=== PATIENT | female | born 1965 | race Caucasian/White ===

== ENCOUNTER 2023-01-28 06:01 | Inpatient (IN) ==
--- NOTE | 2023-01-03 16:32 | PAT Medication Instructions ---
Medication Instructions Date of Service January 03, 2023 Home Medications fexofenadine 180 mg tablet 180 mg PO QPM fluticasone propionate 50 mcg/actuation nasal spray,suspension 1 spray intranasal QAM galcanezumab-gnlm 120 mg/mL subcutaneous pen injector (Emgality Pen) 120 mg subcut Q30D ibuprofen 800 mg tablet 800 mg PO Q8H PRN omeprazole 20 mg capsule,delayed release 20 mg PO QPM potassium chloride 20 mEq tablet,extended release(part/cryst) 40 meq PO BID prednisone 5 mg tablet 7.5 mg PO UD PRN sulfasalazine 500 mg tablet 1 g PO BID PRN topiramate 100 mg tablet 200 mg PO HS triamterene 75 mg-hydrochlorothiazide 50 mg tablet 0.5 tab PO QAM ubrogepant 100 mg tablet (Ubrelvy) 100 mg PO UD PRN Check if prescriber has tabby-operative recommendations topiramate 100 mg tablet 200 mg PO HS Continue as directed prednisone 5 mg tablet 7.5 mg PO UD PRN(if needed) ubrogepant 100 mg tablet (Ubrelvy) 100 mg PO UD PRN(if needed) galcanezumab-gnlm 120 mg/mL subcutaneous pen injector (Emgality Pen) 120 mg subcut Q30D ASK your surgeon for instructions ibuprofen 800 mg tablet 800 mg PO Q8H PRN ASK your prescriber and surgeon sulfasalazine 500 mg tablet 1 g PO BID PRN DO NOT take the morning of surgery potassium chloride 20 mEq tablet,extended release(part/cryst) 40 meq PO BID triamterene 75 mg-hydrochlorothiazide 50 mg tablet 0.5 tab PO QAM Take morning of surgery With a small sip of water, OTHERWISE NOTHING TO EAT OR DRINK AFTER MIDNIGHT: fluticasone propionate 50 mcg/actuation nasal spray,suspension 1 spray intranasal QAM Take evening before surgery fexofenadine 180 mg tablet 180 mg PO QPM omeprazole 20 mg capsule,delayed release 20 mg PO QPM potassium chloride 20 mEq tablet,extended release(part/cryst) 40 meq PO BID Other Notes If you have any questions please call us at [phone] or [phone] or [phone] or [phone]
--- NOTE | 2023-01-04 10:33 | PAT Medication Instructions ---
Medication Instructions Date of Service January 04, 2023 Home Medications fexofenadine 180 mg tablet 180 mg PO QPM fluticasone propionate 50 mcg/actuation nasal spray,suspension 1 spray intranasal QAM galcanezumab-gnlm 120 mg/mL subcutaneous pen injector (Emgality Pen) 120 mg subcut Q30D ibuprofen 800 mg tablet 800 mg PO Q8H PRN Pain omeprazole 20 mg capsule,delayed release 20 mg PO QPM potassium chloride 20 mEq tablet,extended release(part/cryst) 40 meq PO BID prednisone 5 mg tablet 7.5 mg PO UD PRN Pain sulfasalazine 500 mg tablet 1 g PO BID PRN Pain topiramate 100 mg tablet 200 mg PO HS triamterene 75 mg-hydrochlorothiazide 50 mg tablet 0.5 tab PO QAM ubrogepant 100 mg tablet (Ubrelvy) 100 mg PO UD PRN MIGRAINES Take morning of surgery With a small sip of water, OTHERWISE NOTHING TO EAT OR DRINK AFTER MIDNIGHT: Insulin Dependent Diabetic Patients * Test your blood sugar the morning of surgery * If Blood Sugar is GREATER THAN 150, take HALF of your regular dose of: * If Blood Sugar is LESS THAN 150, DO NOT TAKE ANY: Other Notes If you have any questions please call us at [phone] or [phone] or [phone] or [phone]
--- NOTE | 2023-01-12 12:11 | Anesthesiology Consultation ---
Date of Service January 12, 2023 Assessment & Plan (1) Encounter for pre-operative examination: Chart Review Chart Review: Acceptable Risk for Surgery (pending PCP clearance and response re: CXR ) and Patient seen in Pre Admission Testing - Awaiting PCP clearance 01/25/23 (please sent optimization note re:CXR and preop testing to PCP) (Dr. Mackey) Per PAT appt on 01/12/23, patient denies any recent travel or large group acti vities. Pt is vaccinated for Covid. Will leave to surgeon's discretion if preop Covid testing needed. Educated on importance of using Covid precautions one week prior to surgery Teaching & Discussion Pre-Anesthesia Teaching/Discussion Notes: Instructed NPO after midnight before surgery,except medications with 15 cc of water. Medication instructions provided according to the [facility] guidelines. History Surgery Operation Date: 01/28/23 07:45 Proposed Procedures p L3-L4 Revision Decompression, L4-L5 Decompression, L3-L5 Fusion, Spinal Cord Monitoring - Addison Croft, Height/Weight Height: 5 ft 1.5 in Weight: 74.8 kg Allergies Allergy/AdvReac Type Severity Reaction Status Date / Time oxycodone [From OxyContin] AdvReac Vomiting Verified 01/03/23 09:12 Medications Home Medications Medication Instructions Recorded Confirmed Last Taken fexofenadine 180 mg tablet 180 mg PO QPM 01/03/23 01/03/23 Unknown fluticasone propionate 50 1 spray intranasal QAM 01/03/23 01/03/23 Unknown mcg/actuation nasal spray,suspension galcanezumab-gnlm 120 mg/mL 120 mg subcut Q30D 01/03/23 01/03/23 Unknown subcutaneous pen injector (Emgality Pen) ibuprofen 800 mg tablet 800 mg PO Q8H PRN Pain 01/03/23 01/03/23 Unknown omeprazole 20 mg capsule,delayed 20 mg PO QPM 01/03/23 01/03/23 Unknown release potassium chloride 20 mEq 40 meq PO BID 01/03/23 01/03/23 Unknown tablet,extended release(part/cryst) prednisone 5 mg tablet 7.5 mg PO UD PRN Pain 01/03/23 01/03/23 Unknown sulfasalazine 500 mg tablet 1 g PO BID PRN Pain 01/03/23 01/03/23 Unknown topiramate 100 mg tablet 200 mg PO HS 01/03/23 01/03/23 Unknown triamterene 75 0.5 tab PO QAM 01/03/23 01/03/23 Unknown mg-hydrochlorothiazide 50 mg tablet ubrogepant 100 mg tablet (Ubrelvy) 100 mg PO UD PRN MIGRAINES 01/03/23 01/03/23 Unknown Past Medical History Medical History Arthritis GERD (gastroesophageal reflux disease) Well controlled and stable Hx of migraines Hx of seasonal allergies Hypertension Exercise / Class Metabolic Activity II 4-5 Yardwork/Stairs/Walk up hill (one flight of stairs- no chest pain or SOB ) Past Surgical History Surgical History History of endometrial ablation 2004 History of esophagogastroduodenoscopy (EGD) History of lumbar surgery Hx of section X1 1995 Hx of colonoscopy Past Anesthesia History No Hx of Anesthesia Complications and No Family Hx of Anesthesia Complications History of PONV No Hx of PONV (N/V with oxycodone ) and Hx of Motion Sickness (mild) Social History Smoking Status: Never smoker Do You Dip or Chew Tobacco: No Hx Alcohol Use: Yes alcohol intake frequency: holidays/special occasions only Hx Substance Use: No substance use type: does not use Review of Systems - Hx of snoring- did have at home sleep test- no LISS Patient denies chest pain, shortness of breath, dyspnea on exertion, cough, wheezing, palpitations. No hx of seizures, stroke, CO. No hx of blood clots or blood transfusions Physical Exam Vital Signs VITALS BP 101/70 (baseline low normal BP per patient- denies dizziness/syncope) P 76 TEMP 98.2 SP02 97% RESP 16 Constitutional no acute distress ENMT Mouth: no TMJ clicking Thyromental Distance: < 3.5 Finger Breadths (3.0) Mallampati Class: III Wears night guards due grinding teeth Neck + limited neck extension (minimal) Respiratory normal respiratory effort; no respiratory distress Auscultation: lungs clear to auscultation bilaterally; no wheezes Cardiovascular Rate/Rhythm: regular rate and regular rhythm Heart Sounds: no murmur Vessels: no carotid bruit Musculoskeletal Spine: no pain with cervical ROM Extremities: extremities normal to inspection Psychiatric Orientation: alert Lab Results Anesthesia Preop Results Results Anesthesia Widget: WBC 4.24 K/ul (4.8-10.8) L 01/12/23 Hgb 15.3 g/dl (12.0-16.0) 01/12/23 Hct 42.9 % (37.0-47.0) 01/12/23 Plt 232 K/uL (130-400) 01/12/23 Na 136 mmol/L (136-145) 01/12/23 K 4.2 mmol/L (3.5-5.1) 01/12/23 Cl 102 mmol/L (98-107) 01/12/23 CO2 27 mmol/L (21-32) 01/12/23 BUN 14 mg/dl (6-23) 01/12/23 Creat 0.81 mg/dl (0.6-1.2) 01/12/23 Glucose Level 84 mg/dl (70-99(Fasting)) 01/12/23 PT 10.9 Seconds (9.0-12.0) 01/12/23 PTT 29.0 Seconds (21.0-31.0) 01/12/23 INR 1.0 (0.9-1.1) 01/12/23 Urine Color Yellow 01/12/23 Urine Appearance Clear (Clear) 01/12/23 Urine pH 8.0 (4.5-7.5) H 01/12/23 Urine Specific [place] 1.010 (1.000-1.030) 01/12/23 Urine Protein Negative (Negative) 01/12/23 Urine Glucose (UA) Negative (Negative) 01/12/23 Urine Ketones Negative (Negative) 01/12/23 Urine Blood Negative (Negative) 01/12/23 Urine Nitrite Negative (Negative) 01/12/23 Urine Bilirubin Negative (Negative) 01/12/23 Urine Urobilinogen Negative (Negative) 01/12/23 Urine Leukocyte Esterase 1+ (Negative) H 01/12/23 Urine WBC (Auto) 1-5 /hpf (0-5) 01/12/23 Urine RBC (Auto) 0-4 /hpf (0-4) 01/12/23 Urine Hyaline Casts (Auto) 0 /lpf (0-5) 01/12/23 Urine Epithelial Cells (Auto) >30 /lpf (0-5) H 01/12/23 Urine Bacteria (Auto) Negative (Negative) 01/12/23 Blood Type A Positive 01/12/23 Antibody Screen NEGATIVE 01/12/23 Testing Electrocardiogram Date: 01/12/23 Findings: + NSR @ (70bpm ) Normal EKG per cardio Chest X-Ray Date: 01/14/23 FINDINGS: Lung volumes are normal. Note is made of a 2.1 cm density along the left heart border. There is a possible corresponding 3.9 cm density on lateral projection. These findings may be artifactual. There is no pneumothorax or pleural effusion. Cardiac size is normal. Mediastinal contours are normal. There is no evidence for pulmonary edema. IMPRESSION: 1. Possible left lower lobe opacity. This is likely artifactual or atelectatic. However, a nonemergent chest CT is recommended to exclude a pulmonary nodule. 2. No acute cardiopulmonary findings. COVID-19 Risk Screen Screening Information COVID-19 Screen Date: 01/12/23 Exposure 21 Days Family/Household +COVID Last 21 Days: No Exposure 10 Days Any COVID Exposure Last 10 Days: No Symptoms Last 10 Days Experienced COVID Sx Last 10 Days: No + COVID 0-90 Days COVID + in Last 0-90 Days: No Risk Plan COVID Risk Plan: No Risk Identified Patient Education COVID Preop Screening Education Complete: Yes
[~2023-01-28 06:01] MED LIST: ACETAMINOPHEN 500 MG TAB PO SCH; CeleBREX 200 MG CAP PO SCH; GABAPENTIN 600 MG DOSE PO SCH; LR 15ML/HR IV SCH; ceFAZolin 2000MG 2,000 MG/15 ML SYR IV SCH
[2023-01-28] MEDS ORDERED: ceFAZolin 330 MG/ML 1 GM VIAL ONE (07:00)
[2023-01-28] MEDS ORDERED: BUPIVACAINE/EPINEPHRINE 0.25% 1:200,000 30 ML VIAL ONE (07:00)
[2023-01-28] MEDS ORDERED: ATROPINE SULFATE 0.1 MG/ML 10ML SYR IV PRN (07:08)
[2023-01-28] MEDS ORDERED: HYDROmorphone INJ 2 MG/ML SYR/VIAL IV PRN (07:08)
[2023-01-28] MEDS ORDERED: ONDANSETRON INJ 2 MG/ML 2 ML VIAL IV PRN ×2 (07:08→11:32)
[2023-01-28] MEDS ORDERED: PROMETHAZINE HCL 6.25 MG in SODIUM CHLORIDE 0.9% 50 ML IV PRN (07:08)
[2023-01-28] MEDS ORDERED: ePHEDrine sulfate 50 MG/ML AMP IV PRN (07:08)
[2023-01-28] MEDS ORDERED: ROCURONIUM BROMIDE 10 MG/ML 5 ML VIAL IV ONE ×3 (07:18→08:57)
[2023-01-28] MEDS ORDERED: LIDOCAINE 2% 2 ML VIAL/AMP(20MG/ML) INFIL ONE (07:18)
[2023-01-28] MEDS ORDERED: PROPOFOL IV EMULSION 10 MG/ML 20 ML VIAL IV ONE (07:18)
[2023-01-28] MEDS ORDERED: ONDANSETRON INJ 2 MG/ML 2 ML VIAL ONE (07:18)
[2023-01-28] MEDS ORDERED: fentaNYL citrate PF 100 MCG/2 ML VIAL ONE ×2 (07:18→09:40)
[2023-01-28] MEDS ORDERED: DEXAMETHASONE SOD INJ 4 MG/ML VIAL ONE (07:18)
[2023-01-28] MEDS ORDERED: MIDAZOLAM HCL 1 MG/ML 2ML VIAL ONE (07:18)
[2023-01-28] MEDS ORDERED: SODIUM CHLORIDE 0.9% PF INJ 10 ML VIAL ONE (07:28)
[2023-01-28] MEDS ORDERED: ePHEDrine sulfate 50 MG/ML AMP ONE (07:28)
--- NOTE | 2023-01-28 07:38 | History & Physical Bridge Note ---
Date of Service January 28, 2023 History & Physical Bridge Note I have examined the patient, reviewed the History & Physical and in the interval since the performance of the History & Physical I have noted the following changes of clinical significance: no changes noted
--- NOTE | 2023-01-28 07:39 | History & Physical Report ---
Date of Service January 28, 2023 Assessment & Plan (1) Neurogenic claudication due to lumbar spinal stenosis: Plan: L3-L4 revision decompression, L4-L5 decompression, L3-L5 fusion History of Present Illness Chief Complaint: Back and leg pain Primary Care Provider: Victor Hugo Mackey MD This is a 57-year-old female presents with chronic persistent back and leg pain after failing course of nonoperative care she is here for surgical invention. Allergies Allergy/AdvReac Type Severity Reaction Status Date / Time nickel Allergy Severe "severe Verified 01/28/23 06:22 itching" oxycodone [From OxyContin] AdvReac Intermediate Vomiting Verified 01/28/23 06:22 Home Medications Medication Instructions Recorded Confirmed Type fexofenadine 180 mg tablet 180 mg PO QPM 01/03/23 01/28/23 History fluticasone propionate 50 1 spray intranasal QAM 01/03/23 01/28/23 History mcg/actuation nasal spray,suspension galcanezumab-gnlm 120 mg/mL 120 mg subcut Q30D 01/03/23 01/28/23 History subcutaneous pen injector (Emgality Pen) ibuprofen 800 mg tablet 800 mg PO Q8H PRN Pain 01/03/23 01/28/23 History omeprazole 20 mg capsule,delayed 20 mg PO QPM 01/03/23 01/28/23 History release potassium chloride 20 mEq 40 meq PO BID 01/03/23 01/28/23 History tablet,extended release(part/cryst) prednisone 5 mg tablet 7.5 mg PO UD PRN Pain 01/03/23 01/28/23 History sulfasalazine 500 mg tablet 1 g PO BID PRN Pain 01/03/23 01/28/23 History (Azulfidine) topiramate 100 mg tablet 200 mg PO HS 01/03/23 01/28/23 History triamterene 75 0.5 tab PO QAM 01/03/23 01/28/23 History mg-hydrochlorothiazide 50 mg tablet (Maxzide) ubrogepant 100 mg tablet (Ubrelvy) 100 mg PO UD PRN MIGRAINES 01/03/23 01/28/23 History Past Med/Surg History Medical History Arthritis GERD (gastroesophageal reflux disease) Well controlled and stable Hx of migraines Hx of seasonal allergies Hypertension Surgical History History of endometrial ablation 2004 History of esophagogastroduodenoscopy (EGD) History of lumbar surgery Hx of section X1 1995 Hx of colonoscopy Social History Smoking Status: Never smoker Second Hand Exposure: Yes (HX CHILD); Do You Dip or Chew Tobacco: No; Tobacco Cessation Education Requested by Patient: No Hx Alcohol Use: Yes Hx Substance Use: No Preferred Language: Kiswahili Communication Ability: Effective Java User Interface Developer Required: No Beliefs That Will Affect Care: None Current Living Situation: Spouse and Family Other Information That Helps Us Care for You: No Feels Safe at Home: Yes Safety Concerns: Feels Safe At This Time Assistive Devices: None Physical Exam Physical Exam: Patient is alert and oriented Heart regular rhythm Lungs clear
[2023-01-28] MEDS ORDERED: diphenhydrAMINE 50 MG/ML VIAL ONE (08:30)
[2023-01-28] MEDS ORDERED: FLOSEAL HEMOSTATIC MATRIX 10ML TOP ONE (08:38)
[2023-01-28] MEDS ORDERED: SUGAMMADEX SODIUM 200 MG/2 ML VIAL IV ONE (09:40)
--- NOTE | 2023-01-28 09:48 | Operative Report ---
Post Operative Report Pre & Post Diagnosis Operation Date: 01/28/23 07:45 Pre-Op Diagnosis: Neurogenic claudication due to lumbar spinal stenosis Spondylolisthesis L3-L4 Post-Op Diagnosis: Same I identified the patient and participated in the time-out.: Yes Procedure Operation Date: 01/28/23 07:45 Actual Procedures #1 revision decompression bilateral medial facetectomies and foraminotomies L3- L4 L4-L5. #2 posterior spinal fusion L3-L4 L4-5 per #3 placement posterior instrumentation L3-L4 L4-L5. #4 interbody fusion L3-L4 L4-L5. #5 placement Spira 10 x 26 mm at L3-L4 and 13 x 26 mm at L4-L5. #6 placement locally harvested morselized autograft in the posterior gutters. #7 placement of I factor amount of the test in the interbody space and posterior lateral gutters. Surgeon Addison Croft DO Security Field Supervisor Luigi Gomes Estimated Blood Loss 100 Findings Consistent with Post-Op Diagnosis Specimens None Indications This is a 57-year-old female who presents above-mentioned diagnosis and failing course of nonoperative care she is here for surgical invention. Description of Procedure Patient was met with identified informed consent obtained. Patient was then taken to the operative suite underwent a patient placed in a prone position the [facility] and frame. All bony promises well-padded eyes inspected to ensure no external pressure placed upon the. This point the lumbar spine was prepped and draped in a sterile fashion. Sharp dissection with assistance bradycardia from down to and exposing the remaining lamina transverse processes of L4 3 L4-L5 bilaterally. From caudal cephalad fashion revision complete laminectomy of L4 and L3 was performed including bilateral medial facetectomies and foraminotomies addressing severe lateral recess and foraminal disease. Pedicle screws were then placed at L3 L4-5 bilaterally with assistance of fluoroscopy and the platelet sized annel placed. By way of a trans foraminal approach on the left complete discectomy of L4-L5 was performed endplates curetted to subcortically and bone and a 13 x 26 mm Spira cage with I factor tapped in position. Then proceeded to L3-L4 and again by way of transforaminal approach on the left complete discectomy performed endplates curetted to subcortical any bone and a 10 x 26 mm Spira cage with I factor tapped in position. The rods then locked in final position bilaterally. The transverse processes of L3 L4-5 burred to subcortically bone. I factor test and locally harvested morselized autograft was placed in the posterior gutters. 15 round MAURICE inserted. The incision was then closed with 1 Vicryl the fascia 2-0 Vicryl subcutaneously and 4 Monocryl for final skin closure. Steri-Strip sterile dressings placed. Patient awakened taken to PACU in stable condition. Please note spinal cord monitoring was utilized at the procedure no changes noted. Lastly Luigi Gomes was present at the entire surgery and while the patient positioning complex portions of the surgery and final skin closure. I attest to the content of the Intraoperative Record and any orders documented therein. Any exceptions are noted below.
[2023-01-28] MEDS: fentaNYL citrate PF 100 MCG/2 ML VIAL IV PRN ×2 (10:31→10:55)
--- NOTE | 2023-01-28 11:02 | Fluoroscopy Report ---
FL lumbar spine 2-3V CLINICAL HISTORY: L3-5 DFI COMPARISON STUDY: None. FLUOROSCOPY TIME: 25 seconds FLUOROSCOPY IMAGES: 2 Ka,r: 20.0 mGy FINDINGS: Posterior decompression and fusion from L3 through L5 with pedicle screws and rods. The nilton dware appears intact. Disc spacers are in place. IMPRESSION: Fluoroscopic assistance as above. ACT 112: Negative or not required by law. Electronically signed by: Kadeem Herrera M.D. 01/28/2023 11:01 AM
[2023-01-28] MEDS ORDERED: LORazepam 0.5 MG TAB PO PRN (11:32)
[2023-01-28] MEDS ORDERED: DO NOT ADMINISTER FLU VACCINE PRN (11:32)
[2023-01-28] MEDS ORDERED: FAMOTIDINE 20 MG TAB PO PRN (11:32)
[2023-01-28] MEDS ORDERED: LORazepam 2 MG/1 ML VIAL IV PRN (11:32)
[2023-01-28] MEDS ORDERED: PROMETHAZINE HCL 12.5 MG in SODIUM CHLORIDE 0.9% 50 ML IV PRN (11:32)
[2023-01-28] MEDS ORDERED: METOCLOPRAMIDE HCL INJ 5 MG/ML 2 ML VIAL IV PRN (11:32)
[2023-01-28] MEDS ORDERED: SOD PHOSPHATE/SOD BIPHOSPHATE ENEMA 132 ML BTL PR PRN (11:32)
[2023-01-28] MEDS ORDERED: NALOXONE HCL 0.4 MG/1 ML VIAL/CARP IV PRN (11:32)
[2023-01-28] MEDS ORDERED: ACETAMINOPHEN 500 MG TAB PO PRN (11:32)
[2023-01-28] MEDS ORDERED: ALUMINUM/MAGNESIUM SUSP 30 ML UDC PO PRN (11:32)
[2023-01-28] MEDS ORDERED: HYDROmorphone INJ 0.5 MG/0.5 ML SYR IV PRN (11:32)
[2023-01-28] MEDS ORDERED: DO NOT ADMINISTER PNEUMOCOCCAL VACCINE PRN (11:32)
[2023-01-28] MEDS ORDERED: ACETAMINOPHEN 1,000 MG/100 ML VIAL IV PRN (11:32)
[2023-01-28] MEDS ORDERED: bisacodyL 10 MG SUPP PR PRN (11:32)
[2023-01-28] MEDS ORDERED: ONDANSETRON 4 MG OD TAB PO PRN (11:32)
[2023-01-28] MEDS: LACTATED RINGER'S 1,000 ML IV SCH ×2 (11:32→20:36)
[2023-01-28] MEDS ORDERED: hydrOXYzine HCl 25 MG TAB PO PRN (11:32)
[2023-01-28] MEDS ORDERED: diphenhydrAMINE Capsule 25 MG CAP PO PRN (11:32)
[2023-01-28] MEDS ORDERED: MAGNESIUM HYDROXIDE SUSP 30 ML UDC PO PRN (11:32)
--- NOTE | 2023-01-28 11:33 | Anesthesiology Progress Note ---
Date of Service January 28, 2023 Anesthesia Post Procedure Vital Signs Vital Signs: Temp Pulse Resp BP Pulse Ox O2 Del Method O2 Flow Rate 01/28/23 11:15 36.6 C 68 14 105/70 97 Room Air 01/28/23 11:10 36.6 C 64 12 103/67 97 Room Air 01/28/23 11:00 64 12 103/70 96 Room Air 01/28/23 10:50 71 14 118/64 100 Room Air 01/28/23 10:40 64 12 115/65 100 Oxymask 4 01/28/23 10:30 83 21 121/88 100 Oxymask 4 01/28/23 10:20 72 18 122/84 100 Oxymask 6 01/28/23 10:13 36.5 C 78 17 128/87 100 Oxymask 6 Pain Intensity Lower Back: Pain Intensity: 8 Transfer of Care Handoff Completed per policy Notes Mental Status: alert / awake / arousable Patient Amnestic to Procedure: Yes Nausea / Vomiting: adequately controlled Pain: adequately controlled Airway Patency, RR, SpO2: stable & adequate BP & HR: stable & adequate Hydration State: stable & adequate Anesthetic Complications: no major complications apparent
[2023-01-28] MEDS: HYDROmorphone INJ 1 MG/ML SYRINGE IV PRN ×4 (12:00→23:14)
--- NOTE | 2023-01-28 12:07 | Consultation ---
Date of Consultation January 28, 2023 Assessment & Plan (1) Status post lumbar surgery: (2) Neurogenic claudication due to lumbar spinal stenosis: Post op day# 0 S/P revision decompression L3-L5, fusion L3-L5 by Dr Croft EBL#100ml -pain management per ortho -wound management per ortho -PT/OT as appropriate -DVT prophylaxis per ortho -incentive spirometry -monitor H&H for acute blood loss anemia; pre-op Hgb: 15 (3) Hypertension: Stable -Hold triamterene/HCTZ and reassess tomorrow (4) GERD (gastroesophageal reflux disease): - Continue PPI (5) Hx of migraines: On Emgality monthly, Ubrelvy as needed -Continue topiramate (6) Hx of seasonal allergies: - Continue fluticasone nasal spray, fexofenadine (7) Hypokalemia: History of chronic hypokalemia Preop potassium: 4.2 on 01/29/2023 -Hold oral potassium and reassess K level on BMP in am DVT Prophylaxis -SCDs Disposition per primary service Follows with Dr Victor Hugo Mackey in [place], [place] for routine care Pt was seen and care coordinated with Dr Mckenzie. See addendum Thank you for this consultation. We will follow the patient with you during their hospital stay. You can reach a [facility] via [facility] Supervising Physician Co-Signing Physician Notes Patient seen and examined at bedside. Discussed with above provider. Post op day# 0 S/P revision decompression L3-L5, fusion L3-L5 Appears comfortable; not in distress. Holding antihypertensive for now. Continue PPI. PT OT. History of Present Illness Requesting Physician: Dr Croft Reason for Consultation: Postop medical management Attending Physician: Addison Croft, DO History of Present Illness Patient is 57-year-old female with PMH HTN, migraines, GERD, arthritis seen in medical consultation S/P revision decompression L3-L5, fusion L3-L5 today by Dr. Croft. Postop patient reports low back pain and just was medicated and states pain is easing. Denies extremity weakness. Has been drinking water without difficulty. Denies nausea or vomiting. Has Lang catheter in place. Last BM yesterday. Denies fever/chills, diarrhea, constipation, WALTERS, dizziness, neck pain, CP, SOB, cough, sore throat, abdominal pain, extremity edema, rashes, urinary symptoms. Allergies Allergy/AdvReac Type Severity Reaction Status Date / Time nickel Allergy Severe "severe Verified 01/28/23 06:22 itching" oxycodone [From OxyContin] AdvReac Intermediate Vomiting Verified 01/28/23 06:22 Home Medications Medication Instructions Recorded Confirmed Type fexofenadine 180 mg tablet 180 mg PO QPM 01/03/23 01/28/23 History fluticasone propionate 50 1 spray intranasal QAM 01/03/23 01/28/23 History mcg/actuation nasal spray,suspension galcanezumab-gnlm 120 mg/mL 120 mg subcut Q30D 01/03/23 01/28/23 History subcutaneous pen injector (Emgality Pen) ibuprofen 800 mg tablet 800 mg PO Q8H PRN Pain 01/03/23 01/28/23 History omeprazole 20 mg capsule,delayed 20 mg PO QPM 01/03/23 01/28/23 History release potassium chloride 20 mEq 40 meq PO BID 01/03/23 01/28/23 History tablet,extended release(part/cryst) prednisone 5 mg tablet 7.5 mg PO UD PRN Pain 01/03/23 01/28/23 History sulfasalazine 500 mg tablet 1 g PO BID PRN Pain 01/03/23 01/28/23 History (Azulfidine) topiramate 100 mg tablet 200 mg PO HS 01/03/23 01/28/23 History triamterene 75 0.5 tab PO PM 01/03/23 01/28/23 History mg-hydrochlorothiazide 50 mg tablet (Maxzide) ubrogepant 100 mg tablet (Ubrelvy) 100 mg PO UD PRN MIGRAINES 01/03/23 01/28/23 History hydrocodone 5 mg-acetaminophen 300 1 tab PO Q6H PRN pain #30 tabs 01/28/23 Rx mg tablet tramadol 50 mg tablet 50 mg PO Q6H PRN pain, moderate 01/28/23 Rx #30 tabs Patient History Medical History (Updated 01/28/23 @ 12:30 by Leia Castillo PA-C) Arthritis GERD (gastroesophageal reflux disease) Well controlled and stable Hx of migraines Hx of seasonal allergies Hypertension Surgical History (Updated 01/28/23 @ 12:28 by Leia Castillo PA-C) History of endometrial ablation 2004 History of esophagogastroduodenoscopy (EGD) History of lumbar surgery Hx of section X1 1995 Hx of colonoscopy Social History Smoking Status: Never smoker Second Hand Exposure: Yes (HX CHILD); Do You Dip or Chew Tobacco: No; Tobacco Cessation Education Requested by Patient: No Hx Alcohol Use: Yes Hx Substance Use: No Preferred Language: Estonian Communication Ability: Effective Track Car Operator Required: No Beliefs That Will Affect Care: None Current Living Situation: Spouse and Family Other Information That Helps Us Care for You: No Feels Safe at Home: Yes Safety Concerns: Feels Safe At This Time Assistive Devices: None Review of Systems Review of Systems: All systems reviewed & are unremarkable except as noted in HPI & below Physical Exam Physical Exam: General: no acute distress, WDWN Head: normocephalic, atraumatic Eyes:conjunctiva non-injected, anicteric ENT: normal inspection external ears, nose, mucous membranes moist Neck: supple, trachea midline Lungs: clear, no respiratory distress, no wheezing/rhonchi/rales CV: RRR, no murmur, no pretibial edema Abd: normal BS, soft, non-tender Back: Surgical dressing in place and dry, MAURICE drain in place with serosanguineous drainage Ext: no cyanosis, no calf tenderness; pedal pushes and pulls intact bilaterally, distal pulses intact, sensation to light touch intact Neuro: A&O x 3, no focal deficits noted, normal affect Skin: warm, dry Results & Data Vital Signs (Past 12 Hours) Vital Signs Temp Pulse Pulse Resp BP Pulse Ox O2 Del Method 01/28/23 11:32 36.8 C 72 18 118/71 99 Room Air 01/28/23 11:15 36.6 C 68 14 105/70 97 Room Air 01/28/23 11:10 36.6 C 64 12 103/67 97 Room Air 01/28/23 11:00 64 12 103/70 96 Room Air 01/28/23 10:50 71 14 118/64 100 Room Air 01/28/23 10:40 64 12 115/65 100 Oxymask 01/28/23 10:30 83 21 121/88 100 Oxymask 01/28/23 10:20 72 18 122/84 100 Oxymask 01/28/23 10:13 36.5 C 78 17 128/87 100 Oxymask O2 Flow Rate 01/28/23 11:32 01/28/23 11:15 01/28/23 11:10 01/28/23 11:00 01/28/23 10:50 01/28/23 10:40 4 01/28/23 10:30 4 01/28/23 10:20 6 01/28/23 10:13 6
[2023-01-28] MEDS: HYDROCODONE/ACETAMOPHEN 5/325MG TAB PO PRN ×2 (14:51→22:21)
[2023-01-28] MEDS: ceFAZolin 2000MG 2,000 MG/15 ML SYR IV SCH ×2 (17:03→23:18)
[2023-01-28] MEDS: PANTOprazole 40 MG TAB PO SCH (20:32)
[2023-01-28] MEDS: FEXOFENADINE HCL 180 MG TAB PO SCH (20:33)
[2023-01-28] MEDS: TOPIRAMATE 100 MG TAB PO SCH (20:34)
[2023-01-28] MEDS: DOCUSATE SODIUM/SENNA 50/8.6MG TAB PO SCH (20:34)
[2023-01-28] MEDS ORDERED: POTASSIUM CHLORIDE CRTAB 20 MEQ TABCR PO SCH (21:00)
[2023-01-29] MEDS: HYDROCODONE/ACETAMOPHEN 5/325MG TAB PO PRN ×4 (03:00→20:57)
[2023-01-29] MEDS: POLYETHYLENE (MIRALAX) 17 GM PACK PO SCH ×3 (05:38→17:30)
[2023-01-29] MEDS: HYDROmorphone INJ 1 MG/ML SYRINGE IV PRN (05:41)
[2023-01-29] MEDS: LACTATED RINGER'S 1,000 ML IV SCH (05:42)
[2023-01-29 05:59] LABS: Basophils # (auto) 0.02 K/uL (0-0.2); Basophils % (auto) 0.3 %; Eosinophils # (auto) 0.09 K/uL (0-0.50); Eosinophils % (auto) 1.2 %; Hematocrit (blood only) 33.7 % (37.0-47.0); Hemoglobin 11.8 g/dl (12.0-16.0); Immature Granulocytes # (auto) 0.03 K/uL (0.01-0.20); Immature Granulocytes % (auto) 0.4 %; Lymphocytes # (auto) 2.63 K/uL (1.2-3.4); Lymphocytes % (auto) 34.1 %; Mean Corpuscular Hemoglobin 31.7 pg (25.0-34.0); Mean Corpuscular Volume 90.6 fL (80.0-100.0); Monocytes # (auto) 0.62 K/uL (0.11-0.59); Neutrophils # (auto) 4.33 K/uL (1.40-6.50); Platelet Count 150 K/uL (130-400); RDW Coefficient of Variation 11.9 % (11.5-14.5); RDW Standard Deviation 39.2 fL (36.4-46.3); Red Blood Count 3.72 M/uL (4.20-5.40); White Blood Count 7.72 K/ul (4.8-10.8)
[2023-01-29 06:16] LABS: BUN Creatinine Ratio 16.7 (10-20); Calcium 8.5 mg/dl (8.6-10.3); Creatinine Clr Calc Pharmacy 68.7 ml/min; Est GFR (African American) 89.4 ml/min; Est GFR (Non-African American) 77.2 ml/min; Potassium 3.6 mmol/L (3.5-5.1)
--- NOTE | 2023-01-29 08:11 | Orthopedic Progress Note ---
Date of Service January 29, 2023 Assessment & Plan (1) Neurogenic claudication due to lumbar spinal stenosis: Plan: Patient stable postop day #1. We will continue with ambulation and gait training through physical therapy. Continue GI DVT prophylaxis and pain control measures. She will likely be with us throughout the weekend and go home on Tuesday. Admission and Anticipated Discharge Date Admission Date: January 28, 2023 Subjective Patient seen bedside in room 302. She is doing relatively well at this point. Her pain is controlled. She does have some soreness in her neck itself. She is not having much in way of pain in her legs. She denies any other numbness, tingling, paresthesias. She is not nauseous. Physical Exam Physical Exam: On exam she is alert and oriented. Her calves are supple nontender. Her abdomen supple nontender. She is able to roll from side to side without difficulties. Strength and sensation are grossly intact her gait was not observed. Cardiovascular exam reveals no gross abnormalities. Results & Data Vital Signs (Past 12 Hours) Vital Signs Temp Pulse Resp BP BP Pulse Ox O2 Del Method 01/29/23 07:58 36.8 C 60 18 97/65 L 100 Room Air 01/29/23 03:05 93/62 L 01/29/23 03:03 95 Room Air 01/29/23 03:01 37.0 C 72 16 96/66 L 93 Room Air 01/28/23 22:18 36.9 C 60 16 98/66 L 98 Room Air
[2023-01-29] MEDS: dexAMETHasone 6 MG in SYRINGE 0 ML IV SCH (08:25)
[2023-01-29] MEDS: FLUTICASONE PROPIONATE NA SPR 16 GM BTL SCH (08:25)
[2023-01-29] MEDS ORDERED: TRIAMTERENE/HCTZ 37.5/25MG TAB PO SCH (09:00)
[2023-01-29] MEDS: traMADol HCL 50 MG TABLET PO PRN ×3 (10:54→23:22)
--- NOTE | 2023-01-29 14:47 | Hospitalist Progress Note ---
Date of Service January 29, 2023 Assessment & Plan (1) Status post lumbar surgery: (2) Neurogenic claudication due to lumbar spinal stenosis: Plan: Post op day# 1 S/P revision decompression L3-L5, fusion L3-L5 by Dr Croft Pain management, diet, DVT prophylaxis, activities per primary team (3) Hypertension: Plan: BP low normal, continue to hold home diuretics triamterene/hydrochlorothiazide (4) GERD (gastroesophageal reflux disease): Plan: - Continue PPI (5) Hx of migraines: Plan: On Emgality monthly, Ubrelvy as needed -Continue topiramate (6) Hx of seasonal allergies: Plan: - Continue fluticasone nasal spray, fexofenadine (7) Hypokalemia: Plan: On potassium supplements, currently on hold as her home diuretic is on hold DVT Prophylaxis-SCDs Disposition per primary service Admission and Anticipated Discharge Date Admission Date: January 28, 2023 Subjective Patient was seen and examined at bedside. She feels okay. Her pain is controlled with medications. Tolerating diet without issues. No nausea or vomiting. Passing gas but no bowel movement yet. Review of Systems Review of Systems: All systems reviewed & are unremarkable except as noted in Subjective Physical Exam Physical Exam: General: Sitting comfortably in bed, not in distress, on room air HEENT: EOMI, COLLEEN, MMM Chest: Clear breath sounds bilaterally, no wheezes or crackles CVS: Regular rate and rhythm, normal heart sounds, no murmur Abdomen: Soft, non tender, not distended, normal bowel sounds Neuro: Awake, alert, oriented, conversing well, non focal Extremities: No cyanosis, clubbing or edema MSK: Incision clean dry intact covered with dressing, MAURICE drain with serosanguineous output Results & Data Results & Data Vital Signs (Past 12 Hours) Vital Signs Temp Pulse Resp BP BP Pulse Ox O2 Del Method 01/29/23 14:19 37.0 C 69 18 92/59 L 96 Room Air 01/29/23 11:47 36.5 C 68 16 113/71 99 Room Air 01/29/23 08:35 Room Air 01/29/23 07:58 36.8 C 60 18 97/65 L 100 Room Air 01/29/23 03:05 93/62 L 01/29/23 03:03 95 Room Air 01/29/23 03:01 37.0 C 72 16 96/66 L 93 Room Air Laboratory Results Short CBC 01/29/23 Range/Units 05:34 WBC 7.72 (4.8-10.8) K/ul Hgb 11.8 L (12.0-16.0) g/dl Hct 33.7 L (37.0-47.0) % Plt Count 150 (130-400) K/uL BMP 01/29/23 05:34 Sodium 138 Potassium 3.6 Chloride 106 Carbon Dioxide 28 BUN 14 Creatinine 0.84 Glucose 100 H Calcium 8.5 L Medications Administered Current Inpatient Medications Acetaminophen (Acetaminophen 500 Mg Tab) 1,000 mg PO Q8H PRN PRN Reason: MILD Pain Scale 1,2,3 & Pre PT Stop: 02/27/23 11:31 Hydrocodone Bitart/Acetaminophen (Hydrocodone/Acetamophen 5/325mg Tab) 1 - 2 tab PO Q4H PRN PRN Reason: Pain & Pre PT Stop: 02/11/23 11:31 Last Admin: 01/29/23 13:04 Dose: 2 tab Al Hydrox/Mg Hydrox/Simethicone (Aluminum/Magnesium Susp 30 Ml Udc) 30 ml PO Q6H PRN PRN Reason: Dyspepsia Stop: 02/27/23 11:31 Bisacodyl (Bisacodyl 10 Mg Supp) 10 mg NM DAILY PRN PRN Reason: Constipation Stop: 02/27/23 11:31 Diphenhydramine HCl (Diphenhydramine Capsule 25 Mg Cap) 25 mg PO Q6H PRN PRN Reason: Allergic Rhinitis/Insomnia Stop: 02/27/23 11:31 Famotidine (Famotidine 20 Mg Tab) 20 mg PO Q12H PRN PRN Reason: Dyspepsia Stop: 02/27/23 11:31 Fexofenadine HCl (Fexofenadine Hcl 180 Mg Tab) 180 mg PO QPM JORGE Stop: 02/27/23 20:59 Last Admin: 01/28/23 20:33 Dose: 180 mg Fluticasone Propionate (Fluticasone Propionate Na Spr 16 Gm Btl) 1 sprays NA QAM JORGE Stop: 02/28/23 08:59 Last Admin: 01/29/23 08:25 Dose: 1 sprays Hydromorphone HCl (Hydromorphone Inj 0.5 Mg/0.5 Ml Syr) 0.5 mg IV Q3H PRN PRN Reason: MODERATE Pain (Scale 4,5,6) & Pre PT Stop: 02/11/23 11:31 Hydromorphone HCl (Hydromorphone Inj 1 Mg/Ml Syringe) 1 mg IV Q3H PRN PRN Reason: SEVERE Pain (Scale 7,8,9,10) Stop: 02/11/23 11:31 Last Admin: 01/29/23 05:41 Dose: 1 mg Hydroxyzine HCl (Hydroxyzine Hcl 25 Mg Tab) 25 mg PO Q8H PRN PRN Reason: Anxiety Stop: 02/27/23 11:31 Lactated Ringer's (Lr) 1,000 mls @ 100 mls/hr IV .Q10H JORGE Stop: 02/27/23 11:31 Last Admin: 01/29/23 05:42 Dose: 100 mls/hr Promethazine HCl 12.5 mg/ (Sodium Chloride) 50.5 mls @ 202 mls/hr IV Q6H PRN PRN Reason: Nausea &/or Vomiting Stop: 02/27/23 11:31 Dexamethasone 6 mg/ Syringe 1.5 mls @ 1 mls/min IV DAILY JORGE Stop: 01/31/23 09:02 Last Admin: 01/29/23 08:25 Dose: 1 mls/min Influenza Virus Vaccine Quadrival (Do Not Administer Flu Vaccine) 1 each N/A PRN PRN PRN Reason: Notification Stop: 02/27/23 11:31 Lorazepam (Lorazepam 0.5 Mg Tab) 0.5 mg PO Q8H PRN PRN Reason: Sedation/Anxiety Stop: 02/27/23 11:31 Lorazepam (Lorazepam 2 Mg/1 Ml Vial) 0.5 mg IV Q8H PRN PRN Reason: Sedation/Anxiety Stop: 02/27/23 11:31 Magnesium Hydroxide (Magnesium Hydroxide Susp 30 Ml Udc) 30 ml PO Q24H PRN PRN Reason: Constipation Stop: 02/27/23 11:31 Metoclopramide HCl (Metoclopramide Hcl Inj 5 Mg/Ml 2 Ml Vial) 10 mg IV Q6H PRN PRN Reason: Nausea &/or Vomiting Stop: 02/27/23 11:31 Miscellaneous (Ubrelvy~Order Awaiting Action) 1 each N/A QS JORGE Stop: 02/27/23 15:59 Last Admin: 01/29/23 08:25 Dose: Not Given Naloxone HCl (Naloxone Hcl 0.4 Mg/1 Ml Vial/Carp) 0.1 mg IV Q5M PRN PRN Reason: Oversedation/Resp depression Stop: 02/27/23 11:31 Ondansetron HCl (Ondansetron Inj 2 Mg/Ml 2 Ml Vial) 4 mg IV Q6H PRN PRN Reason: Nausea &/or Vomiting Stop: 02/27/23 11:31 Ondansetron HCl (Ondansetron 4 Mg Od Tab) 4 mg PO Q6H PRN PRN Reason: Nausea Stop: 02/27/23 11:31 Pantoprazole Sodium (Pantoprazole 40 Mg Tab) 40 mg PO QPM JORGE Stop: 02/27/23 20:59 Last Admin: 01/28/23 20:32 Dose: 40 mg Pneumococcal Polyvalent Vaccine (Do Not Administer Pneumococcal Vaccine) 1 each N/A PRN PRN PRN Reason: Notification Stop: 02/27/23 11:31 Polyethylene Glycol (Polyethylene (Miralax) 17 Gm Pack) 17 gm PO Q6 JORGE Stop: 02/28/23 05:59 Last Admin: 01/29/23 13:04 Dose: 17 gm Potassium Chloride (Potassium Chloride Crtab 20 Meq Tabcr) 40 meq PO BID JORGE Stop: 02/27/23 20:59 Last Admin: 01/28/23 20:35 Dose: 40 meq Senna/Docusate Sodium (Docusate Sodium/Senna 50/8.6mg Tab) 2 tab PO HS JORGE Stop: 02/27/23 20:59 Last Admin: 01/28/23 20:34 Dose: 2 tab Sodium Biphosphate/Sodium Phosphate (Sod Phosphate/Sod Biphosphate Enema 132 Ml Btl) 132 ml NM ONE PRN PRN Reason: Constipation Stop: 02/27/23 11:31 Topiramate (Topiramate 100 Mg Tab) 200 mg PO HS JORGE Stop: 02/27/23 20:59 Last Admin: 01/28/23 20:34 Dose: 200 mg Tramadol HCl (Tramadol Hcl 50 Mg Tablet) 50 - 100 mg PO Q4H PRN PRN Reason: Moderate-Severe pain & Pre PT Stop: 02/27/23 11:31 Last Admin: 01/29/23 10:54 Dose: 100 mg Triamterene/Hydrochlorothiazide (Triamterene/Hctz 37.5/25mg Tab) 0.5 tab [facility] [place] Stop: 02/28/23 08:59 Last Admin: 01/29/23 08:25 Dose: Not Given
[2023-01-29] MEDS: FEXOFENADINE HCL 180 MG TAB PO SCH (20:58)
[2023-01-29] MEDS: TOPIRAMATE 100 MG TAB PO SCH (20:58)
[2023-01-29] MEDS: PANTOprazole 40 MG TAB PO SCH (20:58)
[2023-01-29] MEDS: DOCUSATE SODIUM/SENNA 50/8.6MG TAB PO SCH (20:58)
[2023-01-30] MEDS: HYDROCODONE/ACETAMOPHEN 5/325MG TAB PO PRN ×5 (03:01→20:42)
[2023-01-30] MEDS: traMADol HCL 50 MG TABLET PO PRN ×3 (05:00→17:33)
[2023-01-30] MEDS: POLYETHYLENE (MIRALAX) 17 GM PACK PO SCH ×4 (06:45→17:29)
--- NOTE | 2023-01-30 07:57 | Orthopedic Progress Note ---
Date of Service January 30, 2023 Assessment & Plan (1) Neurogenic claudication due to lumbar spinal stenosis: Plan: Patient is stable postop day #2. We can continue with GI and DVT prophylaxis continue with mobilization efforts. We will continue to work with her bowel regimen. We will keep her in house today and hopefully get her home tomorrow. Admission and Anticipated Discharge Date Admission Date: January 28, 2023 Subjective Patient was seen bedside in room 302. She is doing well this morning. Overnight she had some increased pain. She believes that she got behind her pain control curve. When she started taking her pain medication again however she is doing much better. She is not having any radicular complaints. She denies any other numbness, tingling, or paresthesias. Physical Exam Physical Exam: On exam she is alert and oriented. Her dressing is clean dry and intact. Her MAURICE drain is holding suction is placed out 45 cc on this shift and 30 on the previous. Her strength and sensation are grossly intact. Her calves are supple nontender her abdomen soft and nontender. Visual thompson are grossly intact cardiovascular exam reveals no gross abnormalities. Results & Data Vital Signs (Past 12 Hours) Vital Signs Temp Pulse Resp BP Pulse Ox O2 Del Method 01/30/23 07:25 Room Air 01/30/23 07:05 36.5 C 60 18 124/85 95 Room Air 01/29/23 21:41 36.5 C 56 L 16 102/66 98 Room Air
[2023-01-30 08:45] LABS: Hematocrit (blood only) 32.8 % (37.0-47.0); Hemoglobin 11.1 g/dl (12.0-16.0); Mean Corpuscular Hemoglobin 31.5 pg (25.0-34.0); Mean Corpuscular Hgb Conc 33.8 g/dL (32.0-36.0); Mean Corpuscular Volume 93.2 fL (80.0-100.0); Platelet Count 131 K/uL (130-400); RDW Coefficient of Variation 11.9 % (11.5-14.5); RDW Standard Deviation 40.4 fL (36.4-46.3); Red Blood Count 3.52 M/uL (4.20-5.40); White Blood Count 6.23 K/ul (4.8-10.8)
[2023-01-30 09:00] LABS: BUN Creatinine Ratio 14.9 (10-20); Calcium 8.8 mg/dl (8.6-10.3); Est GFR (African American) 104.2 ml/min; Est GFR (Non-African American) 89.9 ml/min; Potassium 3.3 mmol/L (3.5-5.1)
[2023-01-30] MEDS: FLUTICASONE PROPIONATE NA SPR 16 GM BTL SCH (09:09)
[2023-01-30] MEDS: dexAMETHasone 6 MG in SYRINGE 0 ML IV SCH (09:09)
[2023-01-30] MEDS ORDERED: POTASSIUM CHLORIDE CRTAB 20 MEQ TABCR PO STA (16:06)
--- NOTE | 2023-01-30 16:06 | Hospitalist Progress Note ---
Date of Service January 30, 2023 Assessment & Plan (1) Status post lumbar surgery: Plan: As below (2) Neurogenic claudication due to lumbar spinal stenosis: Plan: S/P revision decompression L3-L5, fusion L3-L5 by Dr Croft on 01/28/2023 Pain management, diet, DVT prophylaxis, activities per primary team Minimal back pain otherwise stable Has been ambulating Likely discharge tomorrow by the primary service (3) Hypertension: Plan: BP low normal, continue to hold home diuretics triamterene/hydrochlorothiazide Blood pressure remains on the lower side at 89/55 Advised to drink more fluid (4) GERD (gastroesophageal reflux disease): Plan: - Continue PPI (5) Hx of migraines: Plan: On Emgality monthly, Ubrelvy as needed -Continue topiramate (6) Hx of seasonal allergies: Plan: - Continue fluticasone nasal spray, fexofenadine (7) Hypokalemia: Plan: On potassium supplements, currently on hold as her home diuretic is on hold We will give potassium supplement DVT Prophylaxis-SCDs Disposition per primary service Admission and Anticipated Discharge Date Admission Date: January 28, 2023 Subjective 01/30/2023 The patient was seen and examined in medical floor She complains to back pain status post lumbar surgery No radiation Denies any other symptoms Review of Systems Review of Systems: All systems reviewed and are unremarkable except as noted below Physical Exam Physical Exam: Lying in bed comfortably Constitutional: well developed, well nourished and + obese; not ill appearing Eyes: PERRL, conjunctivae normal, anicteric sclerae ENMT: external ear and nose normal, oropharynx normal Neck: trachea midline, no thyromegaly Respiratory: no respiratory distress Auscultation: lungs clear to auscultation bilaterally Cardiovascular: Rate/Rhythm: regular rate and regular rhythm; not tachycardic Heart Sounds: normal S1 and normal S2; no murmur Extremities: no edema Gastrointestinal (Abdomen): Inspection/Auscultation: normal bowel sounds; abdomen not distended Percussion/Palpation: abdomen soft; abdomen nontender Musculoskeletal: Back pain is localized back tenderness without any other acute arthritis Neurologic: Alert, awake and oriented x3 Lymphatic: no cervical or axillary lymphadenopathy Results & Data Results & Data Vital Signs (Past 12 Hours) Vital Signs Temp Pulse Pulse Resp BP BP Pulse Ox 01/30/23 15:16 36.5 C 68 18 89/55 L 95 01/30/23 07:25 01/30/23 07:05 36.5 C 60 18 124/85 95 O2 Del Method 01/30/23 15:16 01/30/23 07:25 Room Air 01/30/23 07:05 Room Air Laboratory Results Short CBC 01/30/23 Range/Units 08:13 WBC 6.23 (4.8-10.8) K/ul Hgb 11.1 L (12.0-16.0) g/dl Hct 32.8 L (37.0-47.0) % Plt Count 131 (130-400) K/uL BMP 01/30/23 08:13 Sodium 138 Potassium 3.3 L Chloride 106 Carbon Dioxide 29 BUN 11 Creatinine 0.74 Glucose 102 H Calcium 8.8 Medications Administered Current Inpatient Medications Acetaminophen (Acetaminophen 500 Mg Tab) 1,000 mg PO Q8H PRN PRN Reason: MILD Pain Scale 1,2,3 & Pre PT Stop: 02/27/23 11:31 Hydrocodone Bitart/Acetaminophen (Hydrocodone/Acetamophen 5/325mg Tab) 1 - 2 tab PO Q4H PRN PRN Reason: Pain & Pre PT Stop: 02/11/23 11:31 Last Admin: 01/30/23 15:32 Dose: 2 tab Al Hydrox/Mg Hydrox/Simethicone (Aluminum/Magnesium Susp 30 Ml Udc) 30 ml PO Q6H PRN PRN Reason: Dyspepsia Stop: 02/27/23 11:31 Bisacodyl (Bisacodyl 10 Mg Supp) 10 mg MO DAILY PRN PRN Reason: Constipation Stop: 02/27/23 11:31 Diphenhydramine HCl (Diphenhydramine Capsule 25 Mg Cap) 25 mg PO Q6H PRN PRN Reason: Allergic Rhinitis/Insomnia Stop: 02/27/23 11:31 Famotidine (Famotidine 20 Mg Tab) 20 mg PO Q12H PRN PRN Reason: Dyspepsia Stop: 02/27/23 11:31 Fexofenadine HCl (Fexofenadine Hcl 180 Mg Tab) 180 mg PO QPM JORGE Stop: 02/27/23 20:59 Last Admin: 01/29/23 20:58 Dose: 180 mg Fluticasone Propionate (Fluticasone Propionate Na Spr 16 Gm Btl) 1 sprays NA QAM JORGE Stop: 02/28/23 08:59 Last Admin: 01/30/23 09:09 Dose: 1 sprays Hydromorphone HCl (Hydromorphone Inj 0.5 Mg/0.5 Ml Syr) 0.5 mg IV Q3H PRN PRN Reason: MODERATE Pain (Scale 4,5,6) & Pre PT Stop: 02/11/23 11:31 Hydromorphone HCl (Hydromorphone Inj 1 Mg/Ml Syringe) 1 mg IV Q3H PRN PRN Reason: SEVERE Pain (Scale 7,8,9,10) Stop: 02/11/23 11:31 Last Admin: 01/29/23 05:41 Dose: 1 mg Hydroxyzine HCl (Hydroxyzine Hcl 25 Mg Tab) 25 mg PO Q8H PRN PRN Reason: Anxiety Stop: 02/27/23 11:31 Promethazine HCl 12.5 mg/ (Sodium Chloride) 50.5 mls @ 202 mls/hr IV Q6H PRN PRN Reason: Nausea &/or Vomiting Stop: 02/27/23 11:31 Dexamethasone 6 mg/ Syringe 1.5 mls @ 1 mls/min IV DAILY [facility] Stop: 01/31/23 09:02 Last Admin: 01/30/23 09:09 Dose: 1 mls/min Influenza Virus Vaccine Quadrival (Do Not Administer Flu Vaccine) 1 each N/A PRN PRN PRN Reason: Notification Stop: 02/27/23 11:31 Lorazepam (Lorazepam 0.5 Mg Tab) 0.5 mg PO Q8H PRN PRN Reason: Sedation/Anxiety Stop: 02/27/23 11:31 Lorazepam (Lorazepam 2 Mg/1 Ml Vial) 0.5 mg IV Q8H PRN PRN Reason: Sedation/Anxiety Stop: 02/27/23 11:31 Magnesium Hydroxide (Magnesium Hydroxide Susp 30 Ml Udc) 30 ml PO Q24H PRN PRN Reason: Constipation Stop: 02/27/23 11:31 Metoclopramide HCl (Metoclopramide Hcl Inj 5 Mg/Ml 2 Ml Vial) 10 mg IV Q6H PRN PRN Reason: Nausea &/or Vomiting Stop: 02/27/23 11:31 Miscellaneous (Ubrelvy~Order Awaiting Action) 1 each N/A QS JORGE Stop: 02/27/23 15:59 Last Admin: 01/30/23 07:09 Dose: Not Given Naloxone HCl (Naloxone Hcl 0.4 Mg/1 Ml Vial/Carp) 0.1 mg IV Q5M PRN PRN Reason: Oversedation/Resp depression Stop: 02/27/23 11:31 Ondansetron HCl (Ondansetron Inj 2 Mg/Ml 2 Ml Vial) 4 mg IV Q6H PRN PRN Reason: Nausea &/or Vomiting Stop: 02/27/23 11:31 Ondansetron HCl (Ondansetron 4 Mg Od Tab) 4 mg PO Q6H PRN PRN Reason: Nausea Stop: 02/27/23 11:31 Pantoprazole Sodium (Pantoprazole 40 Mg Tab) 40 mg PO QPM JORGE Stop: 02/27/23 20:59 Last Admin: 01/29/23 20:58 Dose: 40 mg Pneumococcal Polyvalent Vaccine (Do Not Administer Pneumococcal Vaccine) 1 each N/A PRN PRN PRN Reason: Notification Stop: 02/27/23 11:31 Polyethylene Glycol (Polyethylene (Miralax) 17 Gm Pack) 17 gm PO Q6 JORGE Stop: 02/28/23 05:59 Last Admin: 01/30/23 11:43 Dose: 17 gm Potassium Chloride (Potassium Chloride Crtab 20 Meq Tabcr) 40 meq PO BID JORGE Stop: 02/27/23 20:59 Last Admin: 01/28/23 20:35 Dose: 40 meq Senna/Docusate Sodium (Docusate Sodium/Senna 50/8.6mg Tab) 2 tab PO HS JORGE Stop: 02/27/23 20:59 Last Admin: 01/29/23 20:58 Dose: 2 tab Sodium Biphosphate/Sodium Phosphate (Sod Phosphate/Sod Biphosphate Enema 132 Ml Btl) 132 ml MO ONE PRN PRN Reason: Constipation Stop: 02/27/23 11:31 Topiramate (Topiramate 100 Mg Tab) 200 mg PO HS [facility] Stop: 02/27/23 20:59 Last Admin: 01/29/23 20:58 Dose: 200 mg Tramadol HCl (Tramadol Hcl 50 Mg Tablet) 50 - 100 mg PO Q4H PRN PRN Reason: Moderate-Severe pain & Pre PT Stop: 02/27/23 11:31 Last Admin: 01/30/23 09:13 Dose: 100 mg Triamterene/Hydrochlorothiazide (Triamterene/Hctz 37.5/25mg Tab) [facility] [place]: 02/28/23 08:59 Last Admin: 01/29/23 08:25 Dose: Not Given
[2023-01-30] MEDS: TOPIRAMATE 100 MG TAB PO SCH (20:43)
[2023-01-30] MEDS: FEXOFENADINE HCL 180 MG TAB PO SCH (20:43)
[2023-01-30] MEDS: PANTOprazole 40 MG TAB PO SCH (20:44)
[2023-01-30] MEDS: DOCUSATE SODIUM/SENNA 50/8.6MG TAB PO SCH (20:44)
[2023-01-31] MEDS: POLYETHYLENE (MIRALAX) 17 GM PACK PO SCH ×2 (01:26→06:30)
[2023-01-31] MEDS: HYDROCODONE/ACETAMOPHEN 5/325MG TAB PO PRN ×3 (02:13→12:03)
[2023-01-31 06:51] LABS: Basophils # (auto) 0.03 K/uL (0-0.2); Basophils % (auto) 0.5 %; Eosinophils # (auto) 0.11 K/uL (0-0.50); Eosinophils % (auto) 1.9 %; Hematocrit (blood only) 32.2 % (37.0-47.0); Hemoglobin 10.9 g/dl (12.0-16.0); Immature Granulocytes # (auto) 0.01 K/uL (0.01-0.20); Immature Granulocytes % (auto) 0.2 %; Lymphocytes # (auto) 2.53 K/uL (1.2-3.4); Lymphocytes % (auto) 43.7 %; Mean Corpuscular Hemoglobin 31.1 pg (25.0-34.0); Mean Corpuscular Hgb Conc 33.9 g/dL (32.0-36.0); Mean Platelet Volume 11.3 fL (9.4-12.4); Monocytes # (auto) 0.37 K/uL (0.11-0.59); Monocytes % (auto) 6.4 %; Neutrophils # (auto) 2.74 K/uL (1.40-6.50); Neutrophils % (auto) 47.3 %; Platelet Count 141 K/uL (130-400); RDW Coefficient of Variation 11.9 % (11.5-14.5); RDW Standard Deviation 39.6 fL (36.4-46.3); White Blood Count 5.79 K/ul (4.8-10.8)
[2023-01-31 07:05] LABS: BUN Creatinine Ratio 14.5 (10-20); Calcium 8.8 mg/dl (8.6-10.3); Creatinine Clr Calc Pharmacy 75.9 ml/min; Est GFR (African American) 100.9 ml/min; Est GFR (Non-African American) 87.1 ml/min; Potassium 3.8 mmol/L (3.5-5.1)
[2023-01-31] MEDS: traMADol HCL 50 MG TABLET PO PRN (08:29)
[2023-01-31] MEDS: dexAMETHasone 6 MG in SYRINGE 0 ML IV SCH (08:30)
[2023-01-31] MEDS: FLUTICASONE PROPIONATE NA SPR 16 GM BTL SCH (08:30)
--- NOTE | 2023-01-31 09:30 | Discharge Summary ---
Date of Service January 31, 2023 Admission HPI Per Admitting Provider This is a 57-year-old female presents with chronic persistent back and leg pain after failing course of nonoperative care she is here for surgical invention. Principal Diagnosis Lumbar spinal stenosis with neurogenic claudication Discharge Data Allergies Allergy/AdvReac Type Severity Reaction Status Date / Time nickel Allergy Severe "severe Verified 01/28/23 06:22 itching" oxycodone [From OxyContin] AdvReac Intermediate Vomiting Verified 01/28/23 06:22 Consultations 01/28/23 11:32 Consult Hospitalist Routine Procedures Performed Operation Date: 01/28/23 07:45 Actual Procedures p L3-L4 Revision Decompression, L4-L5 Decompression, L3-L5 Fusion, Spinal Cord Monitoring(Not Applicable) - Addison Croft DO Ordered Studies 01/28/23 07:45 [place] lumbar spine 2-3V Routine Hospital Course (1) Neurogenic claudication due to lumbar spinal stenosis: Patient underwent lumbar decompression fusion Raj Miller taken orthopedic. Labor postop and when she was up and ambulating breast postop day #2 on postop day 3 pain was well controlled MAURICE drain decreased appropriately. Excellent strength testing. Subsequent discharge home. Discharge orders instructions found in chart for further review. Total Time Total Time Spent Total Time Spent (In Minutes): 20 minutes Discharge Plan Discharge Items Patient Disposition: Home - Self-Care Reason For Visit: Spinal Stenosis, Lumbar Region without Nerurogenic Discharge Diagnosis: Lumbar spinal stenosis with neurogenic claudication Activity: As commented below Non-emergency contact: Primary Care Provider Call non-emergency contact if: you have any medication questions Follow-up/Referrals: Victor Hugo Mackey MD [Primary Care Provider] - Diet: Regular Addtl Attending Provider Instructions: ACTIVITY RECOMMENDATIONS: SELF CARE INSTRUCTIONS AFTER THORACIC/LUMBAR FUSIONS 1. You may walk to your tolerance. It is good exercise for your legs and back. Expect some back and intermittent leg aches and pains. 2. You may perform "counter-top" level activities (make a sandwich, adwoa with a project, etc.). 3. No bending or lifting of more than 10 pounds or back twisting of any nature (roll like a log when turning in bed). 4. You may ride in a car for 20-30 minutes at a time. No driving until after your first visit with your doctor. 5. Frequent changes of position and restricting sitting to 30 minutes at a time will help limit the amount of back spasms and stiffness you may experience. 6. You may discontinue the use of ambulatory aids (cane, crutches, etc.) once your strength and confidence allow. 7. You may inside horticultural specialty grower the shower and let water strike your incision when you arrive home at least once daily. Do not take a tub bath, sit in a hot tub or go into a swimming pool until after your first recheck in the office. SPECIAL CARE INSTRUCTIONS: VERY IMPORTANT TO READ AND REVIEW A. Your surgical incision has been closed with a cosmetic suture under the skin that will dissolve in about 6 weeks. In 14 days, you can use a pair of clean scissors and cut the suture that is left outside of the skin at the ends of your incision. 1. The small skin tapes can be removed 7 days after surgery if they have not fallen off by that point. 2. You may keep the wound open to air as much as possible to promote healing after post-op day number 5 unless told otherwise by your doctor. 3. If you think the wound looks like it is becoming infected (redness or worsening drainage) and/or you are experiencing fever, chill or worsening back pain and muscle spasms, contact the office so that we may evaluate you as soon as possible. B. Complications are uncommon, but please contact us if you have any signs or symptoms of: 1. wound infection (fever higher than 102.5 degrees F, redness, separation of wound, drainage, or increasing pain from the incision) 2. blood clots in legs (pain, swelling, redness and warmth in legs) 3. urinary tract infection (fever higher than 102.5 degrees F, burning upon urination or increased frequency of urination) 4. nerve problems (inability to walk on your toes or heels, numbness, loss of bowel or bladder control) 5. any other symptoms that concern you C. Please call the office at if you have any concerns or questions about your operation or recovery. D. No smoking! Smoking drastically decreases the chance of a solid fusion. E. Do not take any anti-inflammatory medications (Indocin, Advil, Motrin, Aspirin, Naprosyn, etc.) as these may inhibit the chance of a solid fusion. Tylenol is okay to take for pain. MANAGING PAIN AFTER SPINAL SURGERY 1. Narcotic medication is intended for short-term use and will be provided for surgical pain. Surgical pain usually lasts for a period of 4-6 weeks. Narcotic medication includes Percocet, Vicodin, Darvocet, Tylenol #3 or Lortab. 2. Longer-term pain is more appropriately treated with non-narcotic medication such as Tylenol ES. 3. Muscle spasm is not appropriately treated with narcotics. Muscle relaxers such as Soma, Flexeril or Skelaxin can be used along with Tylenol ES. 4. Remember that we all live with some "aches and pains". This is not unusual or uncommon after an injury or as we get older. a. Back pain is expected and may include muscle spasms for 4 to 6 weeks after surgery. The pain should gradually improve. If the pain worsens for no apparent reason, please contact the office. b. Intermittent leg pain may also be experienced and should not be concerned about unless it worsens for no apparent reason. If so, please contact the office. 5. We will provide appropriate medication within the normal guidelines of their prescribed use. We will also be very cautious and aware of potential abuse and extended duration of patients' medication needs. a. Pain medications are for your comfort and to assist with sleep and rest so that the tissue can heal. They are not provided in order to return to normal activity and should not be used through the day. To do so or worsening pain at night can result from ongoing tissue damage and development of tolerance to the prescribed medicine. 6. Please allow 2-3 days to process refills. Prescriptions will not be mailed but must be picked up at the office. FOLLOW UP VISIT: Keep your scheduled follow-up appointment. Any questions, please call the office at . Pending Studies at Discharge: No Stand-Alone Forms: [employer], Smoking Cessation Medications and [place] Order Prescriptions: New hydrocodone-acetaminophen 5-300 mg tablet 1 tab PO Q6H PRN (Reason: pain) Qty: 30 0RF tramadol 50 mg tablet 50 mg PO Q6H PRN (Reason: pain, moderate) Qty: 30 0RF Continued sulfasalazine [Azulfidine] 500 mg Tablet 1 g PO BID PRN (Reason: Pain) Patient Comments: TAKES ONCE DAILY Rx Instructions: give with food (meal/snack) prednisone 5 mg Tablet 7.5 mg PO UD PRN (Reason: Pain) Rx Instructions: see taper instructions fexofenadine 180 mg Tablet 180 mg PO QPM potassium chloride 20 mEq Tablet,Er Particles/Crystals 40 meq PO BID omeprazole 20 mg Capsule,Delayed Release(Dr/Ec) 20 mg PO QPM triamterene-hydrochlorothiazid [Maxzide] 75-50 mg Tablet 0.5 tab PO PM topiramate 100 mg Tablet 200 mg PO HS fluticasone propionate 50 mcg/actuation [place],Suspension 1 spray INTRANASAL QAM Rx Instructions: administer into each nostril Emgality Pen 120 mg/mL Pen Injector 120 mg SUBCUT Q30D Ubrelvy 100 mg Tablet 100 mg PO UD PRN (Reason: MIGRAINES) Discontinued ibuprofen 800 mg Tablet 800 mg PO Q8H PRN (Reason: Pain) Patient Comments: USUALLY TAKES TWICE DAILY Discharge Orders: Discharge Order (Routine); Ordered 01/31/23 Ordered By: Addison Croft Admission Data Admit Date/Time: 01/28/23 09:51 Attending Provider: Addison Croft Admit Provider: Addison Croft Primary Care Provider: Victor Hugo Mackey Other Providers: Jennifer Ortiz ; Maurisio Gonzalez ; Elaine Foster
--- NOTE | 2023-02-01 07:21 | Hospitalist Progress Note ---
Date of Service January 31, 2023 This is a late submission of the bill for January 31 Assessment & Plan (1) Status post lumbar surgery: Plan: As below (2) Neurogenic claudication due to lumbar spinal stenosis: Plan: S/P revision decompression L3-L5, fusion L3-L5 by Dr Croft on 01/28/2023 Pain management, diet, DVT prophylaxis, activities per primary team Minimal back pain otherwise stable Has been ambulating To be discharged home today by the primary service Blood counts remained stable (3) Hypertension: Plan: BP low normal, continue to hold home diuretics triamterene/hydrochlorothiazide Blood pressure remains on the lower side at 89/55 Advised to drink more fluid Blood pressure remains controlled (4) GERD (gastroesophageal reflux disease): Plan: - Continue PPI (5) Hx of migraines: Plan: On Emgality monthly, Ubrelvy as needed -Continue topiramate (6) Hx of seasonal allergies: Plan: - Continue fluticasone nasal spray, fexofenadine (7) Hypokalemia: Plan: On potassium supplements, currently on hold as her home diuretic is on hold We will give potassium supplement DVT Prophylaxis-SCDs Disposition per primary service Medically stable to be discharged Admission and Anticipated Discharge Date Admission Date: January 28, 2023 Subjective 01/30/2023 The patient was seen and examined in medical floor She complains to back pain status post lumbar surgery No radiation Denies any other symptoms 01/31/2023 The patient was seen and examined in medical floor She has been stable without any significant symptoms She denies any chest pain, palpitation, shortness of breath, no abdominal pain, nausea and or vomiting Review of Systems Review of Systems: All systems reviewed and are unremarkable except as noted below Physical Exam Physical Exam: Lying in bed comfortably Constitutional: well developed, well nourished and + obese; not ill appearing Eyes: PERRL, conjunctivae normal, anicteric sclerae ENMT: external ear and nose normal, oropharynx normal Neck: trachea midline, no thyromegaly Respiratory: no respiratory distress Auscultation: lungs clear to auscultation bilaterally Cardiovascular: Rate/Rhythm: regular rate and regular rhythm; not tachycardic Heart Sounds: normal S1 and normal S2; no murmur Extremities: no edema Gastrointestinal (Abdomen): Inspection/Auscultation: normal bowel sounds; abdomen not distended Percussion/Palpation: abdomen soft; abdomen nontender Musculoskeletal: No acute arthritis involving any of the joint Neurologic: normal touch/pain/proprioception and moves all extremities; no focal motor deficits Psychiatric: A+Ox3, euthymic affect Lymphatic: no cervical or axillary lymphadenopathy
== END 2023-01-31 14:27 | disposition home or self-care (01) | DRG 455 ==
LOC: ASU 06:01 → 3E 09:51
DX: M48.062 Spinal stenosis, lumbar region with neurogenic claudication; I10 Essential (primary) hypertension; M43.16 Spondylolisthesis, lumbar region; K21.9 Gastro-esophageal reflux disease without esophagitis; G43.909 Migraine, unspecified, not intractable, without status migrainosus; E87.6 Hypokalemia; Z88.5 Allergy status to narcotic agent